=== PATIENT | male | born 1960 | race Caucasian/White ===

== ENCOUNTER 2016-08-11 12:58 | Outpatient (CLI) | payer OTHER ==
--- NOTE | 2016-08-14 13:20 | OP Clinic Progress Note ---
REFERRING PHYSICIAN: Dr. Kaylin Hoffman REASON FOR VISIT: Jose Rodriguez returns for follow up of his rheumatoid arthritis. He is not doing well. He continues to have more than 1 hour of morning stiffness with painful swelling of the hands, worse on the left. It is causing difficulty with all activities of daily living, including working. He still has some pain in his knees. He has been on Humira now for 6 months and has not noticed any significant improvement. Otherwise, he continues on leflunomide 20 mg daily and Plaquenil 200 mg twice a day. He still requires occasional steroids. Low back pain has been stable. Repeat CT of the chest shows stable lung nodules and it is suggested that he have a repeat CT in a year. Hypertension, no new issues. No chest pain or shortness of breath. Diabetes is stable. PRESENT MEDICATIONS: 1. Losartan 50 mg daily. 2. Leflunomide 20 mg daily. 3. Tramadol 50 mg as needed. 4. Metoprolol 50 mg once a day. 5. Humira 40 mg subcutaneous every week. 6. Duloxetine 30 mg daily. 7. Atorvastatin. ALLERGIES: He is allergic to methotrexate which caused hives. REVIEW OF SYSTEMS: Presently, no fevers, chills, or sweats. Fatigue is still a problem. No chest pain, shortness of breath, cough, or wheezing. He continues to smoke. No nausea , vomiting, or diarrhea. No numbness or tingling of extremities. 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 PHYSICAL EXAMINATION: VITAL SIGNS: He is rating his pain as 6 to 7 over 10. Height: 5 feet 11 inches. Weight: 193 pounds. T: 97.1, R: 12, heart rate of 72. HEENT: Sclerae are anicteric. Conjunctivae are pink. No stomatitis or glossitis. External ears and nose are unremarkable. LUNGS: Lungs have some scattered wheezing, otherwise, no rubs. HEART: Regular rhythm. ABDOMEN: Soft and nontender. No organomegaly. VASCULAR: No edema or cyanosis. Fingers have no clubbing. PERIPHERAL JOINTS: DIPs and PIPs are unremarkable. MCPs are tender. MCP #3 on the left is exquisitely tender with 1+ synovitis. Both wrists are tender. He has got tenderness at the elbows. He has limited abduction and rotation of his shoulders. Hips with good range of motion. Knees with some tenderness. Feet are slightly tender. IMPRESSION: Seropositive rheumatoid arthritis of multiple joints, failing combination of Arava, Plaquenil, and Humira, with a history of an allergy to methotrexate. PLAN: I would like to switch the patient to Enbrel 50 mg subcutaneous weekly and this may deem a letter of medical necessity. Thank you very much. Best regards, cc: Dr. Kaylin MURILLO
== END 2016-08-11 13:00 ==
LOC: RHEU 12:58
PROVIDERS: ATTEND Internal Medicine
DX: M05.79 Rheumatoid arthritis with rheumatoid factor of multiple sites without organ or systems involvement (principal); Z79.899 Other long term (current) drug therapy
CPT/HCPCS: 99214

== ENCOUNTER 2016-11-10 14:02 | Outpatient (CLI) | payer OTHER ==
--- NOTE | 2016-11-14 13:28 | OP Clinic Progress Note ---
REASON FOR VISIT: Jose Rodriguez returns for follow up of rheumatoid arthritis, seropositive. He has had 6 injections of Enbrel and he is feeling better. His right elbow especially has improved. Morning stiffness is presently maybe 30 minutes down from 1 hour, less joint swelling of the hands and wrists, and increased activities of daily living and use. Knees, no complaints today. Low back pain has been stable. Lung nodules are stable. Hypertension is stable. Diabetes is stable. PRESENT MEDICATIONS: 1. Atorvastatin. 2. Duloxetine. 3. Metoprolol. 4. Tramadol. 5. Leflunomide 20 mg daily. 6. Losartan 50 mg daily. 7. Plaquenil 200 mg twice a day. 8. Enbrel 50 mg subcutaneous weekly. ALLERGIES: Methotrexate, which causes hives. REVIEW OF SYSTEMS: No fevers, chills, sweats, chest pain, shortness of breath, cough,or wheezing. He has, however, abdominal cramping and diarrheal illness. He equates it with the days he takes his Enbrel. PHYSICAL EXAMINATION: GENERAL: He looks well. VITAL SIGNS: Height: 5 feet 11 inches. Weight: 186. T: 97.5, R: 18, heart rate: 72, BP: 130/90. HEENT: Sclerae are anicteric. Conjunctivae are pink. No stomatitis or glossitis. LUNGS: Clear with no crackles or wheezing. HEART: Regular rhythm. ABDOMEN: Soft and nontender. VASCULAR: No edema or cyanosis. PERIPHERAL JOINTS: No synovitis at the DIPs, PIPs, MCPs, wrists, elbows, shoulders, hips, knees, ankles, and feet. IMPRESSION: 1. Seropositive rheumatoid arthritis, improved, stable. 2. High risk drug. No evidence of toxicity. He brings in labs done on 10-30-16 , AST and ALT are 24 and 29, respectively. CBC within normal limits with a hemoglobin of 16.5, platelets are normal. Sedimentation rate was 21. PLAN: I have asked him to stop his Arava for 2 weeks. If his diarrhea resolves, we will blame it on the Arava. He will then restart it at 20 mg every other day, otherwise, continue Enbrel and I will see him in 3 months. cc: Dr. Kaylin MURILLO
== END 2016-11-10 14:12 ==
LOC: RHEU 14:02
PROVIDERS: ATTEND Internal Medicine
DX: M05.79 Rheumatoid arthritis with rheumatoid factor of multiple sites without organ or systems involvement (principal); Z79.899 Other long term (current) drug therapy
CPT/HCPCS: 99214

== ENCOUNTER 2017-02-09 12:29 | Outpatient (CLI) | payer OTHER ==
--- NOTE | 2017-02-12 11:56 | OP Clinic Progress Note ---
REASON FOR VISIT: Jose Rodriguez returns for follow up of seropositive rheumatoid arthritis of multiple joints. He is doing well on his present combination of Plaquenil, Arava, and Enbrel. He did try to stop the Arava and noted recurrent swelling of his elbows and wrists. He has a little discomfort in his left hand, especially after prolonged usage. Otherwise, he is doing quite well with no significant morning stiffness, i.e. less than 15 minutes. Pain is maybe 2 over 10. No deformities and presently no swelling. Fatigue is still a problem. He takes his Enbrel on Sunday and he thinks it wipes him out on Sunday and Sunday but, overall, he has had less exercise tolerance than in the past. He went and saw a circulation worker, Dr. Alicia, and was fully evaluated and no evidence of ischemia was found. DRUG ALLERGIES: Methotrexate causes a rash. PRESENT MEDICATIONS: 1. Metformin ER 500 mg daily. 2. Vitamin D. 3. Tramadol 50 mg as needed. 4. Metoprolol 50 mg daily. 5. Losartan 100 mg daily. 6. Plaquenil 200 mg twice a day. 7. Enbrel 50 mg subcutaneous weekly. 8. Leflunomide 20 mg once a day. 9. Hydrochlorothiazide 25 mg daily. REVIEW OF SYSTEMS: No fevers, chills, sweats, chest pain, shortness of breath, cough, wheezing, nausea, vomiting, or diarrhea. His diarrheal illness has improved. Let us recall that he associated his diarrhea with his Enbrel. PHYSICAL EXAMINATION: GENERAL: On exam, he looks well. VITAL SIGNS: Height: 5 feet 11 inches. Weight: 190. T: 96.9, R: 18, heart rate of 73, BP: 140/87. HEENT: Sclerae are anicteric. Conjunctivae are pink. No stomatitis or glossitis. LUNGS: Clear bilaterally with no crackles or wheezing. HEART: Regular rhythm. No extra heart sounds. ABDOMEN: Soft and nontender. VASCULAR: Shows no edema. No cyanosis. PERIPHERAL JOINTS: The DIPs, PIPs, MCPs, wrists, elbows, shoulders, AC, SC, TMJ joints, hips, knees, ankles, and feet are all unremarkable with no tenderness or synovitis. IMPRESSION: 1. Seropositive rheumatoid arthritis of multiple joints, doing well. 2. High risk drug. No evidence of drug toxicity. PLAN: 1. No need for labs today. He had extensive labs when he saw Dr. Alicia. 2. We are going to stop his Plaquenil and see if his exercise tolerance improves and whether his joints remain in remission. 3. He equates Enbrel with fatigue. Again, he takes his Enbrel on Sunday. He is fatigued Sunday and Sunday. We are going to switch the Enbrel to Sunday and see how his weekends do and his Sunday's and Sunday's. 4. I assured him that his rheumatoid arthritis was under control and I do not think the Enbrel is causing any significant issues. 5. I will see him back in 3 months. Thank you very much. Best regards, cc: Dr. Kaylin MURILLO
== END 2017-02-09 12:30 ==
LOC: RHEU 12:29
PROVIDERS: ATTEND Internal Medicine
DX: M05.9 Rheumatoid arthritis with rheumatoid factor, unspecified (principal)
CPT/HCPCS: 99213

== ENCOUNTER 2017-05-11 14:02 | Outpatient (CLI) | payer OTHER ==
--- NOTE | 2017-05-14 15:29 | OP Clinic Progress Note ---
REASON FOR VISIT: Jose Rodriguez returns for follow up on seropositive rheumatoid arthritis of multiple joints. He stopped his Plaquenil. He has not noticed any difference. He continues on Arava and Enbrel. He still has morning stiffness lasting 30 minutes and pain at 4 to 5 over 10 requiring Tramadol. It is in his feet, right elbow, and his hands. The fatigue has improved, and otherwise, no fevers, chills, sweats, chest pain, shortness of breath, cough, wheezing, nausea, vomiting, or diarrhea. PRESENT MEDICATIONS: 1. Metformin ER 500 mg daily. 2. Tramadol as needed. 3. Metoprolol 50 mg daily. 4. Losartan 100 mg daily. 5. Enbrel 50 mg subcutaneous weekly. 6. Leflunomide 20 mg daily. 7. HCTZ 25 mg daily. DRUG ALLERGIES: Methotrexate causes a rash. PREVIOUSLY TRIED MEDICATIONS: Humira. PHYSICAL EXAMINATION: GENERAL: On exam, he looks well. VITAL SIGNS: Height: 5 feet 11 inches. Weight: 184. T: 97.2, R: 20, heart rate 71. HEENT: Sclerae are anicteric. Conjunctivae are pink. No stomatitis or glossitis. LUNGS: Clear bilaterally with no crackles or wheezing. HEART: Regular rhythm. ABDOMEN: Soft and nontender. VASCULAR: No edema or cyanosis. PERIPHERAL JOINTS: PIPs are tender. He has 1+ synovitis at right MCP #3. He has tender wrists. Left MCP #2 with synovitis. Right elbow is tender but no synovitis. Shoulders move well. MTPs of the feet are tender. Ankles and knees are unremarkable. IMPRESSION: 1. Seropositive rheumatoid arthritis failing his present regimen. 2. High risk drug. PLAN: 1. I am going to see him in July. He is going to bring me his insurance plan formulary. I will consider switching him to another biologic versus Rituxan. 2. He is due for labs in May. I gave him a lab slip for a CBC, CMP, sedimentation rate, and CRP. Thank you very much. cc: Dr. Kaylin MURILLO
== END 2017-05-11 14:10 ==
LOC: RHEU 14:02
PROVIDERS: ATTEND Internal Medicine
DX: M05.89 Other rheumatoid arthritis with rheumatoid factor of multiple sites (principal); Z79.899 Other long term (current) drug therapy
CPT/HCPCS: 99213; 99214

== ENCOUNTER 2017-08-10 13:57 | Outpatient (CLI) | payer OTHER ==
--- NOTE | 2017-08-16 10:46 | OP Clinic Progress Note ---
REASON FOR VISIT: Jose Rodriguez returns for follow up of seropositive rheumatoid arthritis of multiple joints. He is not doing well. He still has painful swelling of the hands and wrists with loss of use, over an hour of morning stiffness and still requiring tramadol. He also has involvement in his feet and elbows. His fatigue has improved from when I first saw, but still remains fatigued. Otherwise, no fevers, chills, sweats, chest pain, shortness of breath, cough, wheezing, nausea, vomiting, or diarrhea. Prior treatments tried include Plaquenil, methotrexate, and Humira. PRESENT MEDICATIONS: Presently, he is on Enbrel and Arava and other medications include: 1. Metformin ER 500 mg daily. 2. Tramadol as needed. 3. Metoprolol 50 mg daily. 4. Losartan 100 mg daily. 5. Hydrochlorothiazide 25 mg daily. REVIEW OF SYSTEMS: Rest of the systems reviewed is otherwise negative. PHYSICAL EXAMINATION: VITAL SIGNS: Height: 5 feet 11 inches. Weight: 191. T: 96.5, R: 20, heart rate 75, BP: 115/97. HEENT: Sclerae are anicteric. Conjunctivae are pink. No stomatitis or glossitis. LUNGS: Clear. HEART: Regular rhythm. ABDOMEN: Soft. VASCULAR: No edema or cyanosis. PERIPHERAL JOINTS: Tenderness at the PIPs and 1+ synovitis at MCPs and wrists. Cloth Dyer strength is 4/5. Elbows are tender. Shoulders are unremarkable. Feet are tender. Ankles are tender. Knees had no effusions. LABORATORY: Note his last blood work reflects a continuously elevated sedimentation rate to 33. CBC was unremarkable. AST and ALT were normal. Creatinine normal at 0.8. IMPRESSION: Seropositive rheumatoid arthritis, failing his present regimen. Again, medications tried and failed include Plaquenil, methotrexate, Arava, Enbrel, and Humira. PLAN: 1. I would like to switch him to Actemra 162 mg subcutaneous every other week and this may deem a letter of medical necessity. Prior testing for hepatitis and tuberculosis have been done and are negative. 2. He has 2 Enbrel at home and he is going to finish those off while we proceed with the prior authorization process. Thank you very much. cc: Dr. Kaylin MURILLO
== END 2017-08-10 14:00 ==
LOC: RHEU 13:57
PROVIDERS: ATTEND Internal Medicine
DX: M06.89 Other specified rheumatoid arthritis, multiple sites (principal)
CPT/HCPCS: 99213; 99214

== ENCOUNTER 2017-12-14 13:39 | Outpatient (CLI) | payer OTHER ==
--- NOTE | 2017-12-14 15:48 | OP Clinic Progress Note ---
REASON FOR VISIT: Jose Rodriguez returns for follow up on his seropositive rheumatoid arthritis of multiple joints. Although he is better than when he first came, he is still having significant morning stiffness of over 30 to 60 minutes and pain in the elbows and hands and difficulty with extension service specialist. Feet continue to trouble him as well. He still has some fatigue but improved from previous. Prior treatments included Plaquenil, methotrexate, Humira, and Enbrel. CURRENT MEDICATIONS: He is presently takin. Metformin ER 500 mg daily. 2. Tramadol as needed. 3. Metoprolol 50 mg daily. 4. Losartan 100 mg daily. 5. Hydrochlorothiazide 25 mg daily. 6. Actemra 162 mg subcutaneous every other week with Arava 20 mg daily. He had problems getting some of his Arava. REVIEW OF SYSTEMS: No fevers, chills, sweats, chest pain, shortness of breath, cough, wheezing, nausea, vomiting, or diarrhea. PHYSICAL EXAMINATION: VITAL SIGNS: Height: 5 feet 11 inches. Weight: 187 pounds. T: 98, R: 20, heart rate 95, BP: 132/92. HEENT: Sclerae are anicteric. Conjunctivae are pink. No stomatitis or glossitis. LUNGS: Clear. HEART: Regular rate and rhythm. ABDOMEN: Soft. VASCULAR: No edema or cyanosis. SKIN: No rashes or nodules. JOINTS: The DIPs and PIPs are unremarkable. MCPs still show 1+ synovitis. Wrists are slightly tender. Tank Car Inspector is 4/5. Elbows are tender. Shoulders have good range of motion. Feet are tender. Ankles are tender. Knees with full range of motion. No effusions. IMPRESSION: Seropositive rheumatoid arthritis, active. PLAN: 1. I am bumping up his Actemra to 162 mg subcutaneously weekly. 2. I am refilling his Arava 20 mg daily. 3. I will see him back in 3 months. Thank you very much. Best regard, cc: Dr. Kaylin MURILLO
== END 2017-12-14 14:18 ==
LOC: RHEU 13:39
PROVIDERS: ATTEND Internal Medicine
DX: M05.9 Rheumatoid arthritis with rheumatoid factor, unspecified (principal)
CPT/HCPCS: 99213; 99214

== ENCOUNTER 2018-03-15 13:58 | Outpatient (CLI) | payer OTHER ==
--- NOTE | 2018-03-19 11:37 | OP Clinic Progress Note ---
REASON FOR VISIT: Jose Rodriguez returns for follow up of seropositive rheumatoid arthritis of multiple joints. Previous treatments tried and failed are Plaquenil, methotrexate, Humira, and Enbrel. He is presently on Arava 20 mg daily; and at his last visit, I bumped up his Actemra to 162 mg subcutaneous weekly. With that, he is feeling well. No significant joint stiffness or morning stiffness. Activities of daily living are intact. 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 Fatigue has improved and, otherwise, no fevers, chills, sweats, chest pain, shortness of breath, cough, wheezing, nausea, vomiting, or diarrhea. PRESENT MEDICATIONS: 1. Metformin ER 500 mg daily. 2. Tramadol as needed. 3. Metoprolol 50 mg daily. 4. Losartan 100 mg daily. 5. Hydrochlorothiazide 25 mg daily. 6. Arava 20 mg daily. 7. Actemra 162 mg subcutaneous weekly. PHYSICAL EXAMINATION: GENERAL: He looks well. VITAL SIGNS: BP: 150/100 in the right arm and 134/98 in the left arm, P: 97, R: 18, T: 98.3. Weight: 188. HEENT: Sclerae are anicteric. Conjunctivae are pink. No stomatitis or glossitis. LUNGS: Clear with no crackles or wheezing. HEART: Regular rate and rhythm. ABDOMEN: Soft and nontender. No organomegaly. VASCULAR: No edema or cyanosis. PERIPHERAL JOINTS: DIPs and PIPs are nontender and swollen. MCPs still have some residual synovitis and tenderness at MCP #2 and #3 on the right and #2 on the left. Wrists are unremarkable and he has good green building materials distributor strength. Elbows, shoulders, hips, knees, ankles, and feet are nontender. No swelling. LABORATORY: He had labs on January 31 and glucose was 225. CBC was within normal limits. AST was slightly elevated at 59. ALT was 38. IMPRESSION: Seropositive rheumatoid arthritis, improved. Although on exam, he does have some residual synovitis, he feels well. PLAN: 1. I will leave him on his present regimen. 2. He is seeing Dr. Hoffman in April. 3. I gave him a lab slip for a CBC, CMP, sedimentation rate, and CRP. 4. I will see him back in May. Thank you very much. cc: Dr. Kaylin MURILLO
== END 2018-03-15 14:00 ==
LOC: RHEU 13:58
PROVIDERS: ATTEND Internal Medicine
DX: M05.9 Rheumatoid arthritis with rheumatoid factor, unspecified (principal)
CPT/HCPCS: 99213; 99214